=== PATIENT | female | born 1985 | race American Indian/Alaskan Native ===

== ENCOUNTER 2017-07-17 10:06 | Inpatient (IN) | payer MEDICAID ==
[2017-07-17 10:18] LABS: Urine Drugs of Abuse Note Disclamer
[2017-07-17 10:27] LABS: Bacteria,Urine 1+ /HPF (Negative); Bilirubin,Urine NEG (Negative); Blood,Urine NEG (Negative); Ketones,Urine NEG (Negative); Leukocyte Esterase,Urine SM (Negative); Mucus,Urine 3+ /HPF; Nitrite,Urine NEG (Negative)
[2017-07-17] MEDS ORDERED: LACTATED RINGERS 500 ML IV ONE (11:30)
[2017-07-17] MEDS ORDERED: MINERAL OIL PO PRN (11:35)
[2017-07-17] MEDS ORDERED: ePHEDrine SULFATE IV PRN (11:35)
[2017-07-17] MEDS ORDERED: NARCAN 0.4 MG/1 ML IV PRN (11:35)
[2017-07-17] MEDS ORDERED: POLYCILLIN/NS 2 GM/100 ML 2 GM/100 ML BAG IV ONE ×2 (11:35→11:36)
[2017-07-17] MEDS ORDERED: ZOFRAN IV PRN ×2 (11:35→13:16)
[2017-07-17] MEDS ORDERED: PHENERGAN PO PRN ×2 (11:35→13:16)
[2017-07-17] MEDS ORDERED: SUBLIMAZE IV PRN (11:35)
[2017-07-17] MEDS ORDERED: XYLOCAINE 2% INFILTRATI ONE (11:35)
[2017-07-17] MEDS ORDERED: STADOL IV PRN (11:35)
[2017-07-17] MEDS ORDERED: PITOCin/NS 20 UNIT/1000ML DRIP 20,000 MILLIUNITS/1,000 ML BAG IV ONE (11:36)
[2017-07-17] MEDS ORDERED: BRETHINE IVP PRN (11:46)
[2017-07-17] MEDS ORDERED: BRETHINE SUB-Q PRN (11:46)
--- NOTE | 2017-07-17 11:47 | History and Physical Report ---
History of Present Illness Date of examination: 07/17/17 Date of admission: 07/17/17 11:24 Chief complaint: Labor History of present illness: Pt is a 31yo BF LMP 02/01/17; EGA 24 3/7 weeks presents to L&D complaining of RUC's q 2-3 mins. She has not received care with this , but the other 5 deliveries were vaginal and uncomplicated. Past History Past Medical History: no pertinent history Past Surgical History: no surgical history Family/Genetic History: none Social history: no significant social history, single - Obstetrical History Expected Date of Delivery: 11/03/17 Actual Gestation: 24 Week(s) 3 Day(s) : 7 Medications and Allergies Allergies Allergy/AdvReac Type Severity Reaction Status Date / Time No Known Allergies Allergy Verified 07/17/17 11:19 Active Meds: Active Medications Butorphanol Tartrate (Stadol) 2 mg IV Q2H PRN PRN Reason: Pain , Severe (7-10) Ephedrine Sulfate (Ephedrine Sulfate) 10 mg IV Q2M PRN PRN Reason: Hypotension Stop: 07/17/17 11:40 Fentanyl (Sublimaze) 100 mcg IV Q2H PRN PRN Reason: Labor Pain Lactated Ringer's (Lactated Ringers) 500 mls @ 999 mls/hr IV BOLUS ONE Stop: 07/17/17 12:00 Ampicillin Sodium (Polycillin/Ns 1 Gm/50 Ml) 1 gm in 50 mls @ 100 mls/hr IV Q4HR SAMANTHA PRN Reason: Protocol Ampicillin Sodium (Polycillin/Ns 2 Gm/100 Ml) 2 gm in 100 mls @ 100 mls/hr IV ONCE ONE PRN Reason: Protocol Stop: 07/17/17 12:34 Lactated Ringer's (Lactated Ringers) 1,000 mls @ 125 mls/hr IV DIRECT SAMANTHA Oxytocin/Sodium Chloride (Pitocin/Ns 20 Unit/1000ml Drip) 20 units in 1,000 mls @ 125 mls/hr IV DIRECT SAMANTHA Oxytocin/Sodium Chloride (Pitocin/Ns 30 Unit/500ml) 30 units in 500 mls @ 1 mls /hr IV TITR SAMANTHA; 1 MILLIUNITS/MIN PRN Reason: Protocol Lidocaine (Xylocaine 2%) 20 ml INFILTRATI ONCE ONE Stop: 07/17/17 11:36 Mineral Oil (Mineral Oil) 30 ml PO QHS PRN PRN Reason: Constipation Naloxone HCl (Narcan 0.4 Mg/1 Ml) 0.1 mg IV Q2MIN PRN PRN Reason: Res Rate </= 8 or 02 SAT < 92% Ondansetron HCl (Zofran) 4 mg IV Q8H PRN PRN Reason: Nausea And Vomiting Promethazine HCl (Phenergan) 25 mg PO Q6H PRN PRN Reason: Nausea And Vomiting Terbutaline Sulfate (Brethine) 0.25 mg SUB-Q ONCE PRN PRN Reason: Hyperstimulation/Hypertonicity Stop: 07/17/17 11:36 Terbutaline Sulfate (Brethine) 0.25 mg IVP ONCE PRN PRN Reason: Hyperstimulation/Hypertonicity Stop: 07/17/17 11:36 Review of Systems All systems: negative - Vital Signs Vital signs: Vital Signs Pulse BP Pulse Ox 95 H 114/69 97 07/17/17 10:27 07/17/17 10:27 07/17/17 10:27 Temp Pulse Resp BP Pulse Ox 80 100/60 87 07/17/17 11:17 07/17/17 10:55 07/17/17 11:17 - Physical Exam Breasts: Positive: deferred Cardiovascular: Regular rate Lungs: Positive: Clear to auscultation Abdomen: Positive: normal appearance, soft Genitourinary (Female): Positive: normal external genitalia Uterus: Positive: enlarged Extremities: Positive: normal - Obstetrical FHR: category 1 Uterine Contraction Monitor Mode: External Cervical Dilatation: 10 (per nurse) Cervical Effacement Percentage: 100 (per nurse) station: BBOW Uterine Contraction Pattern: Regular Uterine Tone Measurement Phase: Contraction Uterine Contraction Intensity: Strong/Firm Results Result Diagrams: 07/17/17 11:35 Abnormal lab results 07/17/17 Range/Units 10:05 Urine WBC (Auto) 9.0 H (0.0-6.0) /HPF All other labs normal. Ultrasound: image reviewed (Cephalic) Assessment and Plan - Patient Problems (1) 24 weeks gestation of Onset Date: 07/17/17 Current Visit: Yes Status: Acute Plan to address problem: A: IUP @ 24 3/7 weeks in labor labor No care P: Admit to L&D for expectant vaginal delivery NICU consultation Obtain labs and Ob u/s (2) No care in current in second trimester Onset Date: 07/17/17 Current Visit: Yes Status: Acute (3) labor in second trimester Onset Date: 07/17/17 Current Visit: Yes Status: Acute Qualifiers: labor delivery status: with delivery in second trimester Fetus number: single or unspecified fetus Qualified Code(s): O60.12X0 - labor second trimester with delivery second trimester, not applicable or unspecified
[2017-07-17] MEDS ORDERED: LACTATED RINGERS 1,000 ML IV SCH (12:00)
[2017-07-17] MEDS ORDERED: PITOCin/NS 20 UNIT/1000ML DRIP 20 UNITS/1,000 ML BAG IV SCH ×2 (12:00→14:00)
[2017-07-17] MEDS ORDERED: PITOCin/NS 30 UNIT/500ML 30 UNITS/500 ML BAG IV SCH (12:00)
[2017-07-17 12:02] LABS: Hematocrit 35.2 % (30.3-42.9); Hemoglobin 11.3 gm/dl (10.1-14.3); Mean Corpuscular HGB Conc 32 % (30-34); Mean Corpuscular Volume 79 fl (79-97); Platelet Count 192 K/mm3 (140-440); Red Blood Count 4.44 M/mm3 (3.65-5.03); Red Cell Distribution Width 14.5 % (13.2-15.2); White Blood Count 15.1 K/mm3 (4.5-11.0)
[2017-07-17 12:04] LABS: Mean Corpuscular Hemoglobin 25 pg (28-32)
[2017-07-17 13:04] LABS: HIV-1 Antigen p24 Non React (Non React); HIVR-1/2 Ab Non React (Non React)
--- NOTE | 2017-07-17 13:15 | Procedure Note ---
OB Delivery Note - Delivery Date of Delivery: 07/17/17 Surgeon: STANLEY PADILLA Estimated blood loss: 200cc - Vaginal Delivery presentation: vertex Delivery position: OA Intrapartum events: no care, labor-<37 weeks, precipitous labor - <3hr Delivery induction: none Delivery augmentation: rupture of membranes Delivery monitor: external FHT, external uterine Route of delivery: Delivery placenta: spontaneous Delivery cord: 3 umbilical vessels Episiotomy: none Delivery laceration: none Anesthesia: none Delivery comments: delivered OA over intact perineum with Peds/RT in attendance. Delayed cord clamping and [id number] performed - A at 1 minute: 4 at 5 minutes: 6 Gender: Female (1350gms)
[2017-07-17] MEDS ORDERED: PHENERGAN PR PRN (13:16)
[2017-07-17] MEDS ORDERED: NORCO 5/325 PO PRN (13:16)
[2017-07-17] MEDS ORDERED: TUCKS PAD TP PRN (13:16)
[2017-07-17] MEDS ORDERED: BENADRYL PO PRN (13:16)
[2017-07-17] MEDS ORDERED: MILK OF MAGNESIA PO PRN (13:16)
[2017-07-17] MEDS ORDERED: LANSINOH TP PRN (13:16)
[2017-07-17] MEDS ORDERED: DULCOLAX PR PRN (13:16)
[2017-07-17] MEDS ORDERED: TYLENOL PO PRN (13:16)
[2017-07-17] MEDS ORDERED: SODIUM CHLORIDE FLUSH SYRINGE 10 ML IV NR (14:00)
[2017-07-17] MEDS: MOTRIN PO SCH (14:26)
[2017-07-17] MEDS ORDERED: POLYCILLIN/NS 1 GM/50 ML 1 GM/50 ML BAG IV SCH (15:39)
[2017-07-17] MEDS ORDERED: COLACE PO SCH (22:00)
[2017-07-17] MEDS ORDERED: FEOSOL PO SCH (22:00)
[2017-07-18] MEDS: MOTRIN PO SCH ×2 (00:01→05:53)
[2017-07-18 00:57] LABS: Hematocrit 27.9 % (30.3-42.9); Hemoglobin 8.9 gm/dl (10.1-14.3)
[2017-07-18] MEDS ORDERED: BOOSTRIX IM ONE ×2 (06:00→13:16)
[2017-07-18 08:54] VITALS: BP 111/57
[2017-07-18] MEDS ORDERED: PRENATAL VITAMIN PO SCH (10:00)
--- NOTE | 2017-07-18 11:39 | Progress Note ---
Assessment and Plan - Patient Problems (1) 24 weeks gestation of Onset Date: 07/17/17 Current Visit: Yes Status: Resolved (2) No care in current in second trimester Onset Date: 07/17/17 Current Visit: Yes Status: Resolved (3) labor in second trimester Onset Date: 07/17/17 Current Visit: Yes Status: Resolved Qualifiers: labor delivery status: with delivery in second trimester Fetus number: single or unspecified fetus Qualified Code(s): O60.12X0 - labor second trimester with delivery second trimester, not applicable or unspecified (4) (normal spontaneous vaginal delivery) Onset Date: 07/18/17 Current Visit: Yes Status: Resolved Plan to address problem: A: S/P - PPD #1 Doing well P: May go home today. Subjective - Subjective Date of service: 07/18/17 Principal diagnosis: s/p - PPD #1 Interval history: Pt is feeling well without complaints. Bleeding improved. Patient reports: appetite normal, voiding normally, pain well controlled, ambulating normally : doing well, in NICU Objective - Vital Signs Latest vital signs: Vital Signs Temp Pulse Resp BP 07/18/17 08:30 97.7 F 86 18 111/57 07/18/17 01:22 98.1 F 68 18 109/55 07/17/17 21:10 98.1 F 77 20 103/64 07/17/17 18:00 98.0 F 91 H 20 116/65 07/17/17 14:45 97.8 F 93 H 18 121/65 07/17/17 14:12 98.1 F 93 H 18 116/58 07/17/17 14:01 93 H 116/58 07/17/17 13:59 104 H 211/153 07/17/17 13:31 86 117/54 07/17/17 13:15 83 119/69 07/17/17 13:07 98.1 F 98 H 18 115/75 07/17/17 13:00 98 H 115/75 07/17/17 12:45 110 H 126/86 07/17/17 12:30 95 H 121/72 07/17/17 12:15 93 H 134/89 07/17/17 12:05 97.7 F 98 H 20 125/97 07/17/17 12:03 98 H 125/97 07/17/17 11:46 109 H 118/75 Intake and Output 07/17/17 07/18/17 07/18/17 22:59 06:59 14:59 Intake Total 120 240 Balance 120 240 Intake: Intake, Free Water 120 240 Other: # Voids Void 2 - Exam Breasts: Present: deferred Cardiovascular: Present: Regular rate Lungs: Present: Clear to auscultation Abdomen: Present: normal appearance, soft Uterus: Present: normal, firm, fundal height below umbilicus Extremities: Present: normal - Labs Labs: Abnormal lab results 07/17/17 07/18/17 Range/Units 11:35 00:30 WBC 15.1 H (4.5-11.0) K/mm3 Hgb 8.9 L (10.1-14.3) gm/dl Hct 27.9 L D (30.3-42.9) % MCH 25 L (28-32) pg Laboratory Tests 07/17/17 07/17/17 07/17/17 10:05 10:05 11:35 WBC 15.1 H RBC 4.44 Hgb 11.3 Hct 35.2 MCV 79 MCH 25 L MCHC 32 RDW 14.5 Plt Count 192 Urine Color Yellow Urine Turbidity Clear Urine pH 7.0 Ur Specific Bradley 1.023 Urine Protein 30 mg/dl Urine Glucose (UA) Neg Urine Ketones Neg Urine Blood Neg Urine Nitrite Neg Urine Bilirubin Neg Urine Urobilinogen 4.0 Ur Leukocyte Esterase Sm Urine WBC (Auto) 9.0 H Urine RBC (Auto) 1.0 U Epithel Cells (Auto) 9.0 Urine Bacteria (Auto) 1+ Urine Mucus 3+ Urine Opiates Screen Presumptive negative Urine Methadone Screen Presumptive negative Ur Barbiturates Screen Presumptive negative Ur Phencyclidine Scrn Presumptive negative Ur Amphetamines Screen Presumptive negative U Benzodiazepines Scrn Presumptive negative Urine Cocaine Screen Presumptive negative U Marijuana (THC) Screen Presumptive negative Drugs of Abuse Note Disclamer RPR Hep Bs Antigen HIV 1&2 Antibody Rapid HIV P24 Antigen Blood Type Antibody Screen 07/17/17 07/17/17 07/17/17 11:35 11:35 11:35 WBC RBC Hgb Hct MCV MCH MCHC RDW Plt Count Urine Color Urine Turbidity Urine pH Ur Specific Bradley Urine Protein Urine Glucose (UA) Urine Ketones Urine Blood Urine Nitrite Urine Bilirubin Urine Urobilinogen Ur Leukocyte Esterase Urine WBC (Auto) Urine RBC (Auto) U Epithel Cells (Auto) Urine Bacteria (Auto) Urine Mucus Urine Opiates Screen Urine Methadone Screen Ur Barbiturates Screen Ur Phencyclidine Scrn Ur Amphetamines Screen U Benzodiazepines Scrn Urine Cocaine Screen U Marijuana (THC) Screen Drugs of Abuse Note RPR Nonreactive Hep Bs Antigen Non-reactive HIV 1&2 Antibody Rapid HIV P24 Antigen Blood Type B POSITIVE Antibody Screen Negative 07/17/17 07/18/17 11:35 00:30 WBC RBC Hgb 8.9 L Hct 27.9 L D MCV MCH MCHC RDW Plt Count Urine Color Urine Turbidity Urine pH Ur Specific Bradley Urine Protein Urine Glucose (UA) Urine Ketones Urine Blood Urine Nitrite Urine Bilirubin Urine Urobilinogen Ur Leukocyte Esterase Urine WBC (Auto) Urine RBC (Auto) U Epithel Cells (Auto) Urine Bacteria (Auto) Urine Mucus Urine Opiates Screen Urine Methadone Screen Ur Barbiturates Screen Ur Phencyclidine Scrn Ur Amphetamines Screen U Benzodiazepines Scrn Urine Cocaine Screen U Marijuana (THC) Screen Drugs of Abuse Note RPR Hep Bs Antigen HIV 1&2 Antibody Rapid Non react HIV P24 Antigen Non react Blood Type Antibody Screen
--- NOTE | 2017-07-18 11:43 | Discharge Summary ---
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 Hospitalization Reason for admission: active labor, IUP - , labor Delivery: Episiotomy: none Laceration: none Other procedures: none complications: none Discharge diagnosis: delivery baby: female Hospital course: Unremarkable Condition at discharge: Good Disposition: DC-01 TO HOME OR SELFCARE - Discharge Diagnoses (1) 24 weeks gestation of Status: Resolved (2) No care in current in second trimester Status: Resolved (3) labor in second trimester Status: Resolved Qualifiers: labor delivery status: with delivery in second trimester Fetus number: single or unspecified fetus Qualified Code(s): O60.12X0 - labor second trimester with delivery second trimester, not applicable or unspecified (4) (normal spontaneous vaginal delivery) Status: Resolved Plan - Discharge Medications Prescriptions: Ferrous Sulfate [Feosol 325 MG tab] 325 mg PO BID #60 tablet Ibuprofen [Motrin 600 MG tab] 600 mg PO Q6H #30 tablet Vit-Fe Fumar-FA [ Vitamin] 1 each PO QDAY #30 tablet - Provider Discharge Summary Activity: routine, no sex for 6 weeks, no heavy lifting 4 weeks, no strenuous exercise Diet: routine Instructions: routine Additional instructions: [] Smoking cessation referral if applicable(refer to patient education folder for contact #) [] Refer to [facility] Booklet Call your doctor immediately for: * Fever > 100.5 * Heavy vaginal bleeding ( >1 pad per hour) * Severe persistent headache * Shortness of breath * Reddened, hot, painful area to leg or breast * Drainage or odor from incision. * Keep incision clean and dry at all times and follow doctor's instructions regarding bathing/showering - Follow up plan Follow up: BRE MELENDEZ MD [Primary Care Provider] - 7 Days STANLEY PADILLA MD [Staff Physician] - 6 Weeks
[2017-07-18] MEDS ORDERED: M-M-R II VACCINE SUB-Q ONE (13:16)
== END 2017-07-18 14:56 | disposition home or self-care (01) | DRG 775 ==
LOC: TRG 10:06 → LD 11:24 → OB 14:57
PROVIDERS: ADMIT Obstetrics & Gynecology; ATTEND Obstetrics & Gynecology
PROC: 10E0XZZ Delivery of Products of Conception, External Approach (ICD-10-PCS; principal; 2017-07-17)
PROC: 3E0234Z Introduction of Serum, Toxoid and Vaccine into Muscle, Percutaneous Approach (ICD-10-PCS; 2017-07-17)
DX: O60.12X0 Preterm labor second trimester with preterm delivery second trimester, not applicable or unspecified (principal); O62.3 Precipitate labor; Z37.0 Single live birth; Z3A.24 24 weeks gestation of pregnancy
CPT/HCPCS: 36415; 80307; 81001; 85014; 85018; 85027; 86592; 86706; 86762; 86850; 86900; 86901; 87806; 88305; 90471; 90715; 99211; G0463; J0290; J2590; J7120

== ENCOUNTER 2018-04-28 16:05 | Outpatient (CLI) | payer MEDICAID ==
[2018-04-28 16:55] LABS: Bacteria,Urine 1+ /HPF (Negative); Bilirubin,Urine SM (Negative); Blood,Urine NEG (Negative); Color,Urine Amber (Yellow); Mucus,Urine 3+ /HPF
[2018-04-28 17:01] LABS: Ictotest,Urine Negative (Negative)
[2018-04-28 17:31] LABS: Amphetamine Screen,Urine PRESUMPTIVE NEGATIVE; Benzodiazepines Screen,Urine PRESUMPTIVE NEGATIVE; Cannabinoid Screen,Urine PRESUMPTIVE NEGATIVE; Cocaine Screen,Urine PRESUMPTIVE NEGATIVE; Methadone Screen,Urine PRESUMPTIVE NEGATIVE; Opiate Screen,Urine PRESUMPTIVE NEGATIVE
== END 2018-04-28 18:05 | disposition home or self-care (01) ==
LOC: TRG 16:05
PROVIDERS: ATTEND Obstetrics & Gynecology
DX: O47.02 False labor before 37 completed weeks of gestation, second trimester (principal); Z3A.25 25 weeks gestation of pregnancy
CPT/HCPCS: 59025; 80307; 81001

== ENCOUNTER 2019-04-25 13:25 | Emergency (ER) | payer MEDICAID ==
--- NOTE | 2019-04-25 13:46 | Emergency Department Report ---
Blank Doc - Documentation Documentation: This is a 33-year-old female that presents with pressure when urinating. Was cleared in L/D department. Stated is about 4.5 months . This initial assessment/diagnostic orders/clinical plan/treatment(s) is/are subject to change based on patient's health status, clinical progression and re- assessment by fellow clinical providers in the ED. Further treatment and workup at subsequent clinical providers discretion. Patient/guardians urged not to elope from the ED as their condition may be serious if not clinically assessed and managed. Initial orders include: 1- Patient sent to [facility] for further evaluation and treatment 2- UA
[2019-04-25 14:55] LABS: Mucus,Urine 1+ /HPF
--- NOTE | 2019-04-25 14:58 | Emergency Department Report ---
HPI - General Chief Complaint: Urogenital-Female Time Seen by Provider: 04/25/19 13:45 - HPI HPI: 33-year-old female presents to the emergency department with a complaint of some difficulty urinating and burning/pain with urination when she does go. The patient says that she went swimming yesterday. On top of that, the patient is about 4.5 months . She denies any abdominal or pelvic pain if she is not urinating. She denies any fever, nausea, vomiting. She has not taken anything for her symptoms prior to presentation. She was seen over on the delivery and sent to the emergency department after being cleared by them wi th concern for only a possible urinary tract infection. Her FITNESS INSTRUCTOR is Dr. Hall and she has an appointment coming up this Thursday. ED Past Medical Hx - Past Medical History Previous Medical History?: No Hx Hypertension: No Hx Congestive Heart Failure: No Hx Diabetes: No Hx Deep Vein Thrombosis: No Hx Renal Disease: No Hx Sickle Cell Disease: No Hx Seizures: No Hx Asthma: No Hx COPD: No Hx HIV: No - Surgical History Past Surgical History?: No - Social History Smoking Status: Former Smoker Substance Use Type: None - Medications Home Medications: Home Medications Medication Instructions Recorded Confirmed Last Taken Type Ibuprofen [Motrin 800 MG tab] 800 mg PO TID PRN #30 tablet 07/01/18 Unknown Rx Lidocain2.5%/Prilocai2.5% [Emla] 5 gm TP PRN #1 tube 07/01/18 Unknown Rx Nitrofurantoin Stokes/M-Cryst 100 mg PO Q12HR #14 capsule 04/25/19 Unknown Rx [Macrobid CAP] ED Review of Systems ROS: Stated complaint: VAGINAL PAIN Other details as noted in HPI Comment: All other systems reviewed and negative Constitutional: denies: chills, fever Eyes: denies: eye pain, vision change ENT: denies: ear pain, throat pain Respiratory: denies: cough, shortness of breath Cardiovascular: denies: chest pain, palpitations Gastrointestinal: denies: nausea, vomiting Genitourinary: dysuria. denies: discharge Musculoskeletal: denies: back pain, arthralgia Skin: denies: rash, lesions Neurological: denies: headache, weakness Physical Exam - Physical Exam Vital Signs: Vital Signs 04/25/19 13:43 Temperature 98.7 F Pulse Rate 117 H Respiratory 16 Rate Blood Pressure 119/70 O2 Sat by Pulse 96 Oximetry Physical Exam: GENERAL: The patient is well-developed well-nourished. HENT: Normocephalic. Atraumatic. Patient has moist mucous membranes. EYES: Extraocular motions are intact. NECK: Supple. Trachea is midline. CHEST/LUNGS: Clear to auscultation. There is no respiratory distress noted. HEART/CARDIOVASCULAR: Regular. There is no tachycardia. There is no murmur. ABDOMEN: Abdomen is soft, nontender. Patient has normal bowel sounds. There is no abdominal distention. SKIN: Skin is warm and dry. NEURO: The patient is awake, alert, and oriented. The patient is cooperative. The patient has no focal neurologic deficits. The patient has normal speech. MUSCULOSKELETAL: There is no tenderness or deformity. There is no limitation range of motion. There is no evidence of acute injury. ED Course Vital Signs 04/25/19 13:43 Temperature 98.7 F Pulse Rate 117 H Respiratory 16 Rate Blood Pressure 119/70 O2 Sat by Pulse 96 Oximetry ED Medical Decision Making - Medical Decision Making This patient presents with the complaint of some burning with urination. She denies any abdominal or pelvic pain, unless she has just urinated. Patient says that sometimes she feels that there is difficulty urinating but she had no difficulty giving a urine sample for us. When tested, it was positive for a urinary tract infection and there is some hematuria. Patient was placed on Macrobid. She's been instructed to follow up with primary care and FITNESS INSTRUCTOR to make sure that there is resolution of the urinary tract infection and for fur ther evaluation of the subsequent hematuria. She will return to the ER with any worsening of her symptoms, development of abdominal or pelvic pains, vaginal bleeding, or any acute distress. - Differential Diagnosis , UTI, nephrolithiasis Critical care attestation.: If time is entered above; I have spent that time in minutes in the direct care of this critically ill patient, excluding procedure time. ED Disposition Clinical Impression: Qualifiers: Weeks of gestation: unspecified Qualified Code(s): Z34.90 - Encounter for supervision of normal , unspecified, unspecified trimester UTI (urinary tract infection) Qualifiers: Urinary tract infection type: acute cystitis Hematuria presence: with hematuria Qualified Code(s): N30.01 - Acute cystitis with hematuria Disposition: - TO HOME OR SELFCARE Is pt being admited?: No Condition: Stable Instructions: (ED), Urinary Tract Infection in Women (ED) Additional Instructions: Please follow-up with your primary care physician and FITNESS INSTRUCTOR in the next few days. Take the antibiotics as prescribed. Return to the emergency Department with any worsening of her symptoms or any acute distress. Prescriptions: Nitrofurantoin Stokes/M-Cryst [Macrobid CAP] 100 mg PO Q12HR #14 capsule Referrals: OBGYN and PCP, Your [Other] - 2-3 Days
[2019-04-25 14:59] LABS: Bilirubin,Urine Negative (Negative); Color,Urine Yellow (Yellow)
[2019-04-25 15:00] LABS: Blood,Urine Moderate (Negative)
[2019-04-25 15:01] LABS: Ictotest,Urine Negative (Negative)
[2019-04-25 15:02] LABS: RBC,Urine > 182.0 /HPF (0.0-6.0)
[2019-04-25 15:03] LABS: WBC,Urine > 182.0 /HPF (0.0-6.0)
[2019-04-25 15:21] VITALS: BP 112/76
[2019-04-25] MEDS ORDERED: MACROBID PO ONE (15:23)
== END 2019-04-25 17:02 | disposition home or self-care (01) ==
LOC: ED 13:25
DX: O23.42 Unspecified infection of urinary tract in pregnancy, second trimester (principal); Z87.891 Personal history of nicotine dependence; Z3A.16 16 weeks gestation of pregnancy
CPT/HCPCS: 81001; 87086; 99283